=== PATIENT | male | born 1970 ===

== ENCOUNTER → 2020-07-06 09:43 | Outpatient (BNVA) | payer MEDICARE, OTHER, SELFPAY | PROVIDERS: PCP Family Medicine; Referring Provider Family Medicine; Visit Provider Internal Medicine | DX: D35.2 Benign neoplasm of pituitary gland (principal); E03.9 Hypothyroidism, unspecified; E11.22 Type 2 diabetes mellitus with diabetic chronic kidney disease; N18.6 End stage renal disease; E11.59 Type 2 diabetes mellitus with other circulatory complications; I25.10 Atherosclerotic heart disease of native coronary artery without angina pectoris; Z79.4 Long term (current) use of insulin; E21.3 Hyperparathyroidism, unspecified | CPT/HCPCS: 99205 ==

== ENCOUNTER 2020-08-10 12:24 | Outpatient (CLI) | payer MEDICARE, OTHER, SELFPAY ==
--- NOTE | 2020-08-10 12:45 | USCV_ITS ---
Shanell Siva Age: 49 Gender: M : 1970 Exam Date: 08/10/2020 12:43 Ordering Phys: Isela Saldivar MD ([email or web address]) Technologist: Pinky Pena Exam Location: [facility] [place] Indication: chest pain BP: 109 / 54 HR: 63 Rhythm: Sinus Technical Quality: Adequate MEASUREMENTS (Male / Female) Normal Values 2D ECHO LV Diastolic Diameter PLAX 5.0 cm 4.2 - 5.9 / 3.9 - 5.3 cm LV Systolic Diameter PLAX 3.8 cm LV Chamber Size 3.9 cm IVS Diastolic Thickness 1.3 cm 0.6 - 1.0 / 0.6 - 0.9 cm IVS Systolic Thickness 1.7 cm LVPW Diastolic Thickness 2.0 cm 0.6 - 1.0 / 0.6 - 0.9 cm LVPW Systolic Thickness 2.2 cm RV Chamber Size 3.7 cm LVOT Diameter 2.0 cm LV Ejection Fraction 2D Teich 48.5 % LV Ejection Fraction MOD 2C 34.3 % LV Ejection Fraction 2C AL 34.1 % LA Diameter 3.3 cm LA Width 3.5 cm LA Height 5.2 cm RA Width 3.3 cm RA Height 4.8 cm Aorta at Sinotubular Diameter 3.2 cm M-MODE LV Diastolic Diameter MM 5.4 cm 4.2 - 5.9 / 3.9 - 5.3 cm LV Systolic Diameter MM 3.4 cm LV Ejection Fraction MM Teich 67.2 % IVS Diastolic Thickness MM 0.6 cm 0.6 - 1.0 / 0.6 - 0.9 cm IVS Systolic Thickness MM 1.5 cm LVPW Diastolic Thickness MM 0.8 cm 0.6 - 1.0 / 0.6 - 0.9 cm LVPW Systolic Thickness MM 1.5 cm Aortic Annulus Diameter 4.1 cm LA Ao Ratio MM 0.8 MV E Point Septal Separation 1.3 cm DOPPLER AV Peak Velocity 137.3 cm/s LVOT Peak Velocity 104.3 cm/s AV Area Cont Eq vti 3.0 cm squared AV Area Cont Eq pk 2.5 cm squared MV Area PHT 3.1 cm squared Mitral E to A Ratio 1.0 MV E' Velocity 51.5 cm/s Mitral E to MV E' Ratio 13.3 Mitral E to LV E' Lateral Ratio 13.9 Mitral E to LV E' Septal Ratio 12.9 TR Peak Velocity 180.3 cm/s TR Peak Gradient 13.0 mmHg TV Peak E Velocity 68.0 cm/s Right Atrial Pressure 3.0 mmHg Pulmonary Artery Systolic Pressu 16.0 mmHg PV Peak Velocity 71.0 cm/s RV Acceleration Time 0.2 s RV Ejection Time 0.4 s RV AcT/ET 0.5 FINDINGS Left Ventricle Normal LV size with a slightly diminished ejection fraction of 48%. Mild diffuse hypokinesia of the septum and inferolateral wall segments.mild left ventricular hypertrophy. Grade I/IV diastolic dysfunction (abnormal relaxation filling pattern), normal to mildly elevated filling pressures. Right Ventricle The right ventricle is normal in size and function. Right Atrium The right atrium is normal in size. Left Atrium The left atrium is normal in size. Mitral Valve Thickened mitral valve. Moderate mitral annular calcification. Trace mitral valve regurgitation. Aortic Valve Thickened aortic valve. Tricuspid Valve No gross abnormalities noted Pulmonic Valve No gross abnormalities noted Pericardium Normal pericardium without effusion. Aorta Normal ascending aorta dimension. CONCLUSIONS Normal LV size with a slightly diminished ejection fraction of 48%. Mild diffuse hypokinesia of the septum and inferolateral wall segments.mild left ventricular hypertrophy. Grade I/IV diastolic dysfunction (abnormal relaxation filling pattern), normal to mildly elevated filling pressures. Thickened mitral valve. Moderate mitral annular calcification. Trace mitral valve regurgitation. The left atrium is normal in size. Thickened aortic valve. There is no pericardial effusion. There are no intracardiac masses. No previous study is available for comparison. Dr Isela Saldivar MD [facility] (Electronically Signed) Final Date: 10 August 2020 20:17 S
== END 2020-08-10 12:25 | disposition home or self-care (01) ==
LOC: US 12:28
PROVIDERS: PCP Family Medicine; Visit Provider Internal Medicine Cardiovascular Disease
DX: R07.89 Other chest pain (principal); I08.0 Rheumatic disorders of both mitral and aortic valves
CPT/HCPCS: 93306

== ENCOUNTER 2020-09-05 08:23 | Outpatient (CLI) | payer MEDICARE, OTHER, SELFPAY ==
[2020-09-05 08:30] VITALS: BMI 44.1
--- NOTE | 2020-09-05 09:13 | ECG_ITS ---
[facility] Test Date: 2020-09-05 Pat Name: Siva Reece Department: Room: Gender: Male Size Cutter: : 1970 Requested By: Isela Saldivar Order Number: [id number] Ronen MD: Isela Saldivar M.D. Interpretive Statements NAME OF STUDY: LEXISCAN SESTAMIBI STRESS TEST INDICATION: Sob, PROCEDURE: At the baseline, the EKG revealed normal sinus rhythm with a some nonspecific T wave changes in the high lateral leads. Possible old inferior wall OR. The baseline blood pressure was 136/88 mm Hg with a heart rate of 74 beats/min. Lexiscan was infused over a period of 20 seconds. A total of 0.4 milligrams of Lexiscan was infused. The stress phase was continued for a total of 5 minutes. Heart rate at the end of the stress phase was 91 with a blood pressure 116/89. The EKG at the peak infusion revealed no significant changes. Sestamibi was injected 20 seconds after the Lexiscan infusion. Blood pressure at the end of the recovery phase was 121/79 with a heart rate of 99 per minute. CONCLUSION: 1. No significant EKG changes with the LexiScan infusion 2. No LexiScan induced chest pain or cardiac arrhythmia 3. Normal blood pressure and heart rate response to Lexiscan infusion 4. Sestamibi/sestamibi perfusion scan pending; see separate report. Electronically Signed On 09-07-2020 12:58:09 CDT by Isela Saldivar M.D. [id number]
--- NOTE | 2020-09-05 09:14 | NMCV_ITS ---
NM josh perf SPECT r/s* [id number] Siva Reece Age: 49 Gender: M : 1970 Exam Date: 09/05/2020 09:14 Ordering Phys: Isela Saldivar MD ([email or web address]) Technologist: TYRESE Beckford Exam Location: [facility] Indications: SOB STRESS TEST [facility] IMAGE PROTOCOL Rest/Stress 1 Lexiscan Day Radiopharmaceutical Dose (mCi) Administration Site Administered by Rest: Tc-99m 11.0 IV TYRESE Lyle Sestamibi Stress:Tc-99m 32.5 IV TYRESE Lyle Sestamibi Rest: 05-Sep-2020 60 Discovery 630 Stress: 05-Sep-2020 30 Discovery 630 0.4mg Lexiscan. Images obtained in supine and prone position. SPECT RESULTS Technical Quality: Excellent Raw Data Analysis: Normal Image Corrections: No attenuation or motion correction applied Summed Stress Score: 18 Summed Rest Score: 13 Summed Difference Score: 7 PERFUSION FINDINGS Moderate area of decreased aseptic in the basal mid and apical anterior, inferior, mid anterolateral, apical lateral and LV apex. Some reversibility was noted in the anterior wall, anterolateral and apical lateral regions. FUNCTIONAL RESULTS (calculated via Gated SPECT) Stress Image LV EF (%): 45 Stress EDV (mL):175 TID: 0.98 Stress ESV (mL):96 FUNCTIONAL FINDINGS: Segmental wall motion analysis revealed diffuse hypokinesia of left ventricle, more so of the inferior wall, apex and the lateral wall segments. IMPRESSIONS 1. Myocardial perfusion imaging y revealing a moderate area of moderately decreased uptake in the anterior wall, inferior wall, anterolateral, apical lateral and LV apex with some reversibility in the anterior wall, anterolateral, and apical lateral segments, suggestive of myocardial scarring with ischemia in the distribution of the left circumflex artery/anterior descending artery. 2. Diminished LV ejection fraction of 45%. 3. Multiple wall motion normalities as mentioned above. 4. Moderately increased LV cavity with an end diastolic volume of 96 mL No similar previous studies are available for comparison Dr Isela Saldivar MD [facility] (Electronically Signed) Final Date: 05 Sep 2020 15:00 S
[2020-09-05 10:16] VITALS: BP 121/79; PULSE 99
[2020-09-05] MEDS: regadenoson 0.4 Mg/5 ml Syringe IVP (10:19)
== END 2020-09-05 08:24 | disposition home or self-care (01) ==
LOC: RAD 08:28 → CDL 08:30
PROVIDERS: PCP Family Medicine; Visit Provider Internal Medicine Cardiovascular Disease
DX: R06.02 Shortness of breath (principal)
CPT/HCPCS: 78452; 93017; A9500; J2785

== ENCOUNTER 2020-12-02 07:00 | Outpatient (CLI) | payer MEDICARE, OTHER, SELFPAY ==
[2020-12-02 07:00] VITALS: BP 112/76; PULSE 71; RESP 18; TEMP 36.6; O2SAT 98; BMI 43.0
[2020-12-02 07:33] VITALS: BP 113/74; PULSE 70; RESP 18; TEMP 36.9; O2SAT 96
[2020-12-02 08:30] VITALS: BP 110/75; PULSE 69; RESP 18; TEMP 36.8; O2SAT 98
== END 2020-12-02 07:01 | disposition home or self-care (01) ==
PROVIDERS: PCP Family Medicine; Visit Provider Family Medicine
DX: U07.1 COVID-19 (principal)
CPT/HCPCS: 96365

== ENCOUNTER 2021-01-14 11:26 | Outpatient (CLI) | payer MEDICARE, OTHER, SELFPAY ==
--- NOTE | 2021-01-14 11:45 | MR_ITS ---
WS: [id number] MRI HEAD WITH CONTRAST WITH ATTENTION TO THE PITUITARY. TECHNIQUE: Sagittal T1, T2 axial, T2 axial FLAIR, axial susceptibility weighted imaging, axial diffus ion weighted images, and coronal T2 images were obtained. Pre and post-T1 axial and post T1 coronal i mages. ADC and FSPGR images. CLINICAL INFORMATION: pituitary adenoma COMPARISON: None. FINDINGS: No evidence of restricted diffusion to suggest acute ischemia. Ventricular system and basal cisterns are patent. Mild small vessel changes. Mild parenchymal volume loss. No extra-axial fluid collections . Normal posterior fossa. Normal vascular flow voids at the skull base. Mild mucosal thickening in th e paranasal sinuses. Mastoid air cells are well aerated. No hemosiderin on susceptibly weighted images. Bony expansion of the sella with heterogeneous enhanci ng soft tissue compatible with history of pituitary adenoma. No significant suprasellar extension. No rmal optic chiasm and pituitary infundibulum. Enhancing heterogeneous tissue within the sella measuri ng approximately 1.8 x 1.6 x 1.6 cm AP by transverse by craniocaudal. This extends about the right ca vernous carotid artery involving the right cavernous sinus. Normal left cavernous sinus. 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 Recommend correlation with treatment history. No abnormal intracranial intraparenchymal enhancement. Normal dural venous sinuses. Incidental slight ly low-lying cerebellar tonsils. MR/MR pituitary wo/w con* [id number] IMPRESSION: Some images degraded by patient motion. 1. T2 hyperintense heterogeneously enhancing tissue within the expanded sella likely due to residual macroadenoma measuring approximately 1.8 x 1.6 x 1.6 cm with involvement of the right cavernous sinus. 2. No evidence of suprasellar extension. Minimal right to left deviation of th e infundibulum. Normal optic chiasm. 3. No restricted diffusion to suggest acute ischemia. 4. Mild small vessel changes with mild parenchymal volume loss. 5. No other significant findings.
--- NOTE | 2021-01-14 12:32 | XR_ITS ---
WS: [id number] FOREARM LEFT TECHNIQUE: 2 views of the left forearm CLINICAL INFORMATION: PRE MRI, FISCULR IMPANT COMPARISON: None. FINDINGS: Vascular calcification. Postoperative changes arteriovenous fistula graft in the volar distal forearm soft tissues. Postoperative changes with juan and embolization coils XR/XR forearm LT 2V [id number] IMPRESSION: Postoperative changes arteriovenous fistula graft in the volar distal forearm
== END 2021-01-14 11:27 | disposition home or self-care (01) ==
PROVIDERS: PCP Family Medicine; Visit Provider Internal Medicine
DX: Z01.818 Encounter for other preprocedural examination (principal); D35.2 Benign neoplasm of pituitary gland; Z96.89 Presence of other specified functional implants
CPT/HCPCS: 70553; 73090; A9577

== ENCOUNTER → 2021-06-13 10:34 | Outpatient (BNVA) | payer MEDICARE, OTHER, SELFPAY | PROVIDERS: PCP Family Medicine; Visit Provider Internal Medicine | DX: E11.22 Type 2 diabetes mellitus with diabetic chronic kidney disease (principal); E11.59 Type 2 diabetes mellitus with other circulatory complications; N18.6 End stage renal disease; E78.5 Hyperlipidemia, unspecified; D35.2 Benign neoplasm of pituitary gland; E03.9 Hypothyroidism, unspecified; I25.10 Atherosclerotic heart disease of native coronary artery without angina pectoris; Z99.2 Dependence on renal dialysis; Z79.4 Long term (current) use of insulin; Z87.891 Personal history of nicotine dependence | CPT/HCPCS: 99214 ==

== ENCOUNTER → 2021-10-17 10:18 | Outpatient (BNVA) | payer MEDICARE, OTHER, SELFPAY | PROVIDERS: PCP Family Medicine; Visit Provider Internal Medicine | DX: E11.22 Type 2 diabetes mellitus with diabetic chronic kidney disease (principal); E11.59 Type 2 diabetes mellitus with other circulatory complications; N18.6 End stage renal disease; E78.5 Hyperlipidemia, unspecified; D35.2 Benign neoplasm of pituitary gland; E03.9 Hypothyroidism, unspecified; I25.10 Atherosclerotic heart disease of native coronary artery without angina pectoris; Z99.2 Dependence on renal dialysis; Z79.4 Long term (current) use of insulin; Z87.891 Personal history of nicotine dependence | CPT/HCPCS: 99214 ==

== ENCOUNTER → 2021-12-03 09:33 | Outpatient (BNVA) | payer MEDICARE, OTHER, SELFPAY | PROVIDERS: PCP Family Medicine; Visit Provider Nurse Practitioner Family | DX: I12.0 Hypertensive chronic kidney disease with stage 5 chronic kidney disease or end stage renal disease (principal); E11.22 Type 2 diabetes mellitus with diabetic chronic kidney disease; N18.5 Chronic kidney disease, stage 5; Z99.2 Dependence on renal dialysis; Z87.891 Personal history of nicotine dependence; Z79.4 Long term (current) use of insulin; Z79.84 Long term (current) use of oral hypoglycemic drugs; E11.59 Type 2 diabetes mellitus with other circulatory complications; I25.10 Atherosclerotic heart disease of native coronary artery without angina pectoris | CPT/HCPCS: 93005; 99214 ==

== ENCOUNTER → 2022-04-01 16:00 | Outpatient (BNVA) | payer MEDICARE, OTHER, SELFPAY | PROVIDERS: PCP Family Medicine; Visit Provider Internal Medicine | DX: D35.2 Benign neoplasm of pituitary gland (principal); E78.5 Hyperlipidemia, unspecified; E03.9 Hypothyroidism, unspecified; E11.22 Type 2 diabetes mellitus with diabetic chronic kidney disease; N18.6 End stage renal disease; E11.59 Type 2 diabetes mellitus with other circulatory complications; I25.10 Atherosclerotic heart disease of native coronary artery without angina pectoris; Z79.4 Long term (current) use of insulin; Z87.891 Personal history of nicotine dependence; Z79.85 Long-term (current) use of injectable non-insulin antidiabetic drugs; Z79.890 Hormone replacement therapy | CPT/HCPCS: 36415; 80053; 80061; 83036; 84146; 84403; 84439; 84443; 85025; 99214 ==

== ENCOUNTER → 2022-06-03 11:31 | Outpatient (BNVA) | payer MEDICARE, OTHER, SELFPAY | PROVIDERS: PCP Family Medicine; Visit Provider Internal Medicine Cardiovascular Disease | DX: I25.10 Atherosclerotic heart disease of native coronary artery without angina pectoris (principal); E11.59 Type 2 diabetes mellitus with other circulatory complications; E78.5 Hyperlipidemia, unspecified; Z79.4 Long term (current) use of insulin; Z99.2 Dependence on renal dialysis; E03.9 Hypothyroidism, unspecified; D35.2 Benign neoplasm of pituitary gland; I12.0 Hypertensive chronic kidney disease with stage 5 chronic kidney disease or end stage renal disease; E11.22 Type 2 diabetes mellitus with diabetic chronic kidney disease; N18.6 End stage renal disease | CPT/HCPCS: 99214 ==

== ENCOUNTER → 2022-07-15 13:04 | Outpatient (BNVA) | payer MEDICARE, OTHER, SELFPAY | PROVIDERS: PCP Family Medicine; Visit Provider Internal Medicine | DX: E11.22 Type 2 diabetes mellitus with diabetic chronic kidney disease (principal); E11.59 Type 2 diabetes mellitus with other circulatory complications; N18.6 End stage renal disease; E78.5 Hyperlipidemia, unspecified; E03.9 Hypothyroidism, unspecified; D35.2 Benign neoplasm of pituitary gland; I25.10 Atherosclerotic heart disease of native coronary artery without angina pectoris; Z79.4 Long term (current) use of insulin; Z99.2 Dependence on renal dialysis; Z79.890 Hormone replacement therapy | CPT/HCPCS: 36415; 80053; 80061; 83036; 84146; 84403; 84439; 84443; 85025; 99214 ==

== ENCOUNTER → 2022-07-30 13:15 | Outpatient (BNVA) | payer MEDICARE, OTHER, SELFPAY | PROVIDERS: PCP Family Medicine; Visit Provider Surgery | DX: Z12.11 Encounter for screening for malignant neoplasm of colon (principal) | CPT/HCPCS: 99024; 99203 ==

== ENCOUNTER 2022-08-06 06:17 | Day surgery (SDC) | payer MEDICARE, OTHER, SELFPAY ==
[2022-08-04 12:15] VITALS: BMI 40.7
[2022-08-06 06:40] VITALS: BP 155/98; PULSE 93; RESP 17; TEMP 36.3; O2SAT 99
[2022-08-06] MEDS: sodium chloride 0.9% 1,000 ML 30 ML IV (06:54)
--- NOTE | 2022-08-06 07:46 | ANES.PREANE2 ---
Pre-Anesthetic Assessment Height/Weight: Height 1.78 m Weight 128.82 kg Temp Pulse Resp BP Pulse Ox O2 Del Method 97.3 F L 93 17 155/98 99 Room Air 08/06/22 06:40 08/06/22 06:40 08/06/22 06:40 08/06/22 06:40 08/06/22 06:40 08/06/22 06:40 Preop Diagnosis: Screening Operation Date: 08/06/22 08:00 Proposed Procedures p Colonoscopy 84315,Z12.11(Not Applicable) - Shalom Mitchell DO Familial anesthetic complications: None Was Beta Rox taken within 24 hours: Yes Was Clonidine taken within 24 hours: N/A Last intake: Intake Last Liquid Date 08/05/22 Last Liquid Time 22:00 Last Solid Date 08/04/22 Last Solid Time 20:00 Social No alcohol and No tobacco Exam alert, oriented x 3, clear to auscultation bilaterally and regular rate & rhythm Airway Submandibular: within normal limits Cervical ROM: within normal limits Mallampati: Class II Dentition: full History/ROS No significant history except as noted Pulmonary None reported CV/HEM Coronary Artery Disease and Hypertension 2018 triple bypass; pt sees cardiology group at [facility]- had angiogram last month and states everything was good , no chest pain or syncope with activity, good activity tolerance Chronic Renal Failure (CKD stage 5- getting established at [facility] for transplant; MWF dialysis- last dialysis on 08/04) Hepatic None reported GI None reported Metabolic Diabetes Mellitus (DM II), Hyperlipidemia, Morbid Obesity and Thyroid Disease pituitary adenoma; Hx hyperparathyroid Musc/skel None reported Neuropsych None reported Anesthetic Plan ASA status: 4 Anesthesia: Anesthesia Evaluation and MAC Risk of > 500 ml blood loss (7ml/kg in children): No Medications/Allergies Home Medications Medication Instructions Recorded Confirmed Last Taken Type cabergoline 0.5 mg tablet 0.5 mg PO DIRECTED 07/02/20 08/06/22 08/05/22 History furosemide 40 mg tablet 40 mg PO DAILY 07/02/20 08/06/22 08/05/22 History metoprolol tartrate 50 mg tablet 50 mg PO BID 07/02/20 08/06/22 08/05/22 History aspirin 325 mg tablet 325 mg PO DAILY 07/06/20 08/06/22 08/03/22 History insulin lispro 100 unit/mL 10 unit (0.1 mL) SUBCUT BID #33 mL 07/19/20 08/06/22 08/05/22 Rx subcutaneous pen atorvastatin 40 mg tablet 40 mg PO DAILY 09/05/20 08/06/22 08/05/22 History cinacalcet 60 mg tablet (Sensipar) 30 mg PO DAILY 09/05/20 08/06/22 08/05/22 History famotidine 40 mg tablet 20 mg PO BEDTIME 03/14/21 08/06/22 08/05/22 History sucroferric oxyhydroxide 500 mg 1,500 mg PO TID 03/14/21 08/06/22 08/04/22 History chewable tablet (Velphoro) vit B,C-folic ac 800 mcg-zinc 12.5 1 tab PO DAILY 03/14/21 08/06/22 08/05/22 History mg-selen-D3 2,000 unit-vit E tablet levothyroxine 137 mcg tablet 137 mcg PO DAILY #90 tabs 11/26/21 08/06/22 08/05/22 Rx testosterone 12.5 mg/1.25 gram per 2 pump transdermal QAM #150 grams 11/27/21 08/06/22 Unknown Rx actuation (1%) transdermal gel pump semaglutide 0.25 mg or 0.5 mg (2 2 mg SUBCUT .weekly 12/03/21 08/06/22 08/02/22 History mg/1.5 mL) subcutaneous pen injector (Ozempic) insulin syringe-needle U-100 1 mL #100 ea 07/15/22 07/30/22 Unknown Rx 32 gauge x 5/16 (Easy Comfort Insulin Syringe) testosterone cypionate 100 mg/mL 100 mg SUBCUT .q14day #10 mL 07/15/22 08/06/22 Unknown Rx intramuscular oil insulin detemir U-100 100 unit/mL 50 unit SUBCUT .bedtime 08/04/22 08/06/22 08/05/22 History (3 mL) subcutaneous pen (Levemir 25 units FlexTouch U-100 Insulin) isosorbide mononitrate 30 mg 30 mg PO DAILY #90 tabs 08/05/22 08/06/22 08/05/22 Rx tablet,extended release 24 hr Allergies Allergy/AdvReac Type Severity Reaction Status Date / Time No Known Allergies Allergy Verified 08/06/22 06:37 Current Medications Generic Name Dose Route Start Last Admin Trade Name Freq PRN Reason Stop Dose Admin Sodium Chloride 1,000 mls @ 30 mls/hr 08/06/22 06:45 08/06/22 06:54 Sodium Chloride 0.9% IV 08/07/22 06:44 30 mls/hr .Q24H NICK Administration PFSH Anesthesia Medical History CKD (chronic kidney disease), stage V Fistula H/O coronary angiogram History of hypertension Surgical History History of appendectomy History of esophagogastroduodenoscopy (EGD) History of pituitary surgery S/P triple vessel bypass Family History Mother CHF (congestive heart failure) Diabetes Chronic kidney disease (CKD) CAD (coronary artery disease) Family/Other Cancer Father Creutzfeldt-Justo's disease Denies family history of Clotting disorder Dementia Suicide Anesthesia complication Bleeding disorder Lung disease Stroke Social History Smoking and tobacco status: former smoker Second hand smoke exposure: Yes Alcohol intake: former Data Anesthesia Cardiac Studies: Echocardiogram Ultrasound 08/10/20 Sestamibi Stress Test (Cardiology) 09/05/20
--- NOTE | 2022-08-06 08:17 | W.PM.OPSUD ---
Surgery/Procedure H&P Update DATE OF PROCEDURE: August 06, 2022 DATE H&P PERFORMED: 07/30/22 H&P UPDATE INFORMATION: I have reviewed H&P completed within last 30 days, I have examined patient prior to procedure and No changes to prior documentation PREOP DIAGNOSIS: Screening PLANNED PROCEDURE: Operation Date: 08/06/22 08:00 Proposed Procedures p Colonoscopy 46926,Z12.11(Not Applicable) - Shalom Mitchell, DO
[2022-08-06 08:40] LABS: Alanine Aminotransferase 21 U/L (0-41); Albumin Level 3.4 g/dL (3.5-5.2); Alkaline Phosphatase 72 U/L (40-130); Blood Urea Nitrogen 50 mg/dL (6-20); Calcium 8.1 mg/dL (8.5-10.5); Carbon Dioxide 24 mmol/L (22-29); Chloride 100 mmol/L (98-107); Globulin 2.8 g/dL (1.3-4.6); Glomerular Filtration Rate 5.7 mL/min (90-130); Glucose 74 mg/dL (65-115); Osmolality Calculated 298 mOsm/kg (285-295); Sodium 138 mmol/L (136-145); Total Bilirubin 0.4 mg/dL (0.15-1.2); Total Protein 6.2 g/dL (6.6-8.7)
[2022-08-06 08:41] LABS: Anion Gap 18.5 (5-19); Aspartate Amino Transferase 19 U/L (0-40); Potassium 4.5 mmol/L (3.5-5.1)
[2022-08-06 09:46] VITALS: BP 122/58; PULSE 94; RESP 16; TEMP 36.1; O2SAT 95
[2022-08-06 10:01] VITALS: BP 131/63; PULSE 88; RESP 16; O2SAT 99
--- NOTE | 2022-08-06 15:19 | ANE.PACU2 ---
Inpatient post-anesthesia follow up: Airway intact: Yes Vital signs: Temperature 97.0 F Pulse Rate 88 Respiratory Rate 16 Blood Pressure 131/63 Pulse Oximetry 99 Oxygen Delivery Me thod Room Air Oxygen Flow Rate Fraction of Inspir ed Oxygen Hydration adequate: Yes Nausea and vomiting: No Pain level: 2 Mental status: Baseline
== END 2022-08-06 10:05 | disposition home or self-care (01) ==
PROVIDERS: Anesthesiology; PCP Family Medicine; Visit Provider Surgery
PROC: 0DJD8ZZ Inspection of Lower Intestinal Tract, Via Natural or Artificial Opening Endoscopic (ICD-10-PCS; CPT 45378; principal; 2022-08-06 08:00)
DX: Z12.11 Encounter for screening for malignant neoplasm of colon (principal); K57.30 Diverticulosis of large intestine without perforation or abscess without bleeding; K64.8 Other hemorrhoids; I25.10 Atherosclerotic heart disease of native coronary artery without angina pectoris; Z95.1 Presence of aortocoronary bypass graft; E11.22 Type 2 diabetes mellitus with diabetic chronic kidney disease; I12.0 Hypertensive chronic kidney disease with stage 5 chronic kidney disease or end stage renal disease; N18.5 Chronic kidney disease, stage 5; Z99.2 Dependence on renal dialysis; Z79.4 Long term (current) use of insulin; Z87.891 Personal history of nicotine dependence
CPT/HCPCS: 80053; G0121; J2704; J7030

== ENCOUNTER → 2022-12-09 11:42 | Outpatient (BNVA) | payer MEDICARE, OTHER, SELFPAY | PROVIDERS: PCP Family Medicine; Visit Provider Internal Medicine Cardiovascular Disease | DX: I25.10 Atherosclerotic heart disease of native coronary artery without angina pectoris (principal); E11.59 Type 2 diabetes mellitus with other circulatory complications; E03.9 Hypothyroidism, unspecified; E11.22 Type 2 diabetes mellitus with diabetic chronic kidney disease; N18.6 End stage renal disease; E78.5 Hyperlipidemia, unspecified; I12.0 Hypertensive chronic kidney disease with stage 5 chronic kidney disease or end stage renal disease; Z99.2 Dependence on renal dialysis; Z87.891 Personal history of nicotine dependence; Z79.4 Long term (current) use of insulin | CPT/HCPCS: 99214 ==

== ENCOUNTER → 2023-07-07 14:54 | Outpatient (BNVA) | payer MEDICARE, OTHER, SELFPAY | PROVIDERS: PCP Family Medicine; Visit Provider Internal Medicine Cardiovascular Disease | DX: I25.10 Atherosclerotic heart disease of native coronary artery without angina pectoris (principal); I12.0 Hypertensive chronic kidney disease with stage 5 chronic kidney disease or end stage renal disease; E11.22 Type 2 diabetes mellitus with diabetic chronic kidney disease; N18.5 Chronic kidney disease, stage 5; Z79.4 Long term (current) use of insulin; E78.5 Hyperlipidemia, unspecified; E21.3 Hyperparathyroidism, unspecified; Z87.891 Personal history of nicotine dependence | CPT/HCPCS: 99214 ==

== ENCOUNTER → 2023-07-28 10:33 | Outpatient (BNVA) | payer MEDICARE, OTHER, SELFPAY | PROVIDERS: PCP Family Medicine; Visit Provider Internal Medicine | DX: Z12.5 Encounter for screening for malignant neoplasm of prostate (principal); E11.22 Type 2 diabetes mellitus with diabetic chronic kidney disease; N18.6 End stage renal disease; Z79.4 Long term (current) use of insulin; Z99.2 Dependence on renal dialysis; E78.5 Hyperlipidemia, unspecified; E03.9 Hypothyroidism, unspecified; D35.2 Benign neoplasm of pituitary gland; E78.2 Mixed hyperlipidemia; E11.59 Type 2 diabetes mellitus with other circulatory complications; I25.10 Atherosclerotic heart disease of native coronary artery without angina pectoris; Z79.890 Hormone replacement therapy; Z79.85 Long-term (current) use of injectable non-insulin antidiabetic drugs | CPT/HCPCS: 36415; 80053; 80061; 82044; 82306; 82310; 83036; 83970; 84146; 84403; 84439; 84443; 85025; 99214; G0103 ==

== ENCOUNTER → 2023-09-29 09:43 | Outpatient (BNVA) | payer MEDICARE, OTHER, SELFPAY | PROVIDERS: PCP Family Medicine; Visit Provider Internal Medicine | DX: E11.22 Type 2 diabetes mellitus with diabetic chronic kidney disease (principal); E11.59 Type 2 diabetes mellitus with other circulatory complications; N18.6 End stage renal disease; Z99.2 Dependence on renal dialysis; E78.5 Hyperlipidemia, unspecified; E03.9 Hypothyroidism, unspecified; D35.2 Benign neoplasm of pituitary gland; I25.10 Atherosclerotic heart disease of native coronary artery without angina pectoris; Z79.890 Hormone replacement therapy; Z79.4 Long term (current) use of insulin | CPT/HCPCS: 36415; 80053; 80061; 82044; 83036; 84146; 84439; 84443; 99214 ==

== ENCOUNTER 2023-12-10 12:00 | Outpatient (CLI) | payer MEDICARE, OTHER, SELFPAY ==
[2023-12-10 12:54] LABS: Creatinine Urine, Random 88 mg/dL (39-259)
[2023-12-10 12:57] LABS: Estmated Average Glucose 100; Hemoglobin A1C 5.1 % (4.0-6.0)
[2023-12-10 12:59] LABS: Alanine Aminotransferase 30 U/L (0-41); Albumin Level 4.2 g/dL (3.5-5.2); Alkaline Phosphatase 92 U/L (40-130); Anion Gap 19.8 (5-19); Aspartate Amino Transferase 22 U/L (0-40); Blood Urea Nitrogen 42 mg/dL (6-20); Calcium 9.2 mg/dL (8.5-10.5); Carbon Dioxide 29 mmol/L (22-29); Chloride 95 mmol/L (98-107); Chol HDL Ratio 2.97 mg/dL (1.0-5.00); Cholesterol 101 mg/dL (0-200); Free T4 Free Thyroxine 1.28 ng/dL (0.82-1.77); Globulin 2.8 g/dL (1.3-4.6); Glomerular Filtration Rate 7.2 mL/min (90-130); Glucose 113 mg/dL (65-115); HDL Cholesterol 34 mg/dL (60-100); LDL Cholesterol Calculated 39 mg/dL (50-129); LDL HDL Ratio 1.15 RATIO (0.00-3.22); Osmolality Calculated 299 mOsm/kg (285-295); Potassium 4.8 mmol/L (3.5-5.1); Sodium 139 mmol/L (136-145); Thyroid Stimulating Hormone 5.79 uIU/mL (0.27-4.20); Total Bilirubin 0.4 mg/dL (0.15-1.2); Triglycerides 138 mg/dL (0-150)
[2023-12-10 14:09] LABS: Microalbum Creatinine Ratio Ur 455 mg/dL (0-20); Microalbumin Random Urine > 40 ug/dL (0-20)
== END 2023-12-10 12:01 | disposition home or self-care (01) ==
LOC: LAB 12:01
PROVIDERS: PCP Family Medicine; Visit Provider Internal Medicine
DX: N18.6 End stage renal disease (principal); Z79.4 Long term (current) use of insulin; Z99.2 Dependence on renal dialysis; E11.22 Type 2 diabetes mellitus with diabetic chronic kidney disease; E29.1 Testicular hypofunction; E78.5 Hyperlipidemia, unspecified; E03.9 Hypothyroidism, unspecified
CPT/HCPCS: 36415; 80053; 80061; 82044; 83036; 84146; 84439; 84443

== ENCOUNTER → 2023-12-31 11:09 | Outpatient (BNVA) | payer MEDICARE, OTHER, SELFPAY | PROVIDERS: PCP Family Medicine; Visit Provider Internal Medicine | DX: N18.6 End stage renal disease (principal); E11.22 Type 2 diabetes mellitus with diabetic chronic kidney disease; E78.5 Hyperlipidemia, unspecified; Z79.4 Long term (current) use of insulin; Z99.2 Dependence on renal dialysis | CPT/HCPCS: 36415; 80053; 80061; 82044; 83036; 84146; 84439; 84443 ==

== ENCOUNTER → 2024-01-07 10:15 | Outpatient (BNVA) | payer MEDICARE, OTHER, SELFPAY | PROVIDERS: PCP Family Medicine; Visit Provider Nurse Practitioner Family | DX: E11.59 Type 2 diabetes mellitus with other circulatory complications (principal); I25.10 Atherosclerotic heart disease of native coronary artery without angina pectoris; I12.0 Hypertensive chronic kidney disease with stage 5 chronic kidney disease or end stage renal disease; E11.22 Type 2 diabetes mellitus with diabetic chronic kidney disease; N18.5 Chronic kidney disease, stage 5; Z79.4 Long term (current) use of insulin | CPT/HCPCS: 99214 ==

== ENCOUNTER 2024-02-02 11:00 | Outpatient (CLI) | payer MEDICARE, OTHER, SELFPAY ==
--- NOTE | 2024-02-02 11:00 | MR_ITS ---
WS: [id number] MRI BRAIN WITHOUT AND WITH CONTRAST, ATTENTION DIRECTED TO THE PITUITARY GLAND HISTORY: pituitary adenoma COMPARISON: 01/14/2021 TECHNIQUE: Diffusion-weighted imaging, axial T2 sequence, and postcontrast images in 3 planes are per formed. High-resolution coronal and sagittal imaging performed through the pituitary region with and without intravenous gadolinium. Normal diffusion imaging. No acute ischemia. Normal ventricle system. No hydrocephalus. Mild small ve ssel disease and mild volume loss is stable. Reidentified is a heterogeneous enhancing soft tissue mass centered in the region of the sella turcic a and the pituitary gland. Pituitary infundibulum remains midline. No deviation of the optic chiasm. Mass measures 1.8 x 1.5 x 1.6 cm, AP by transverse by craniocaudad. Similar measurements as on the p rior study. There is extension to about the RIGHT carotid artery in the cavernous sinus. Similar to t he prior study. No progression. No extension into the LEFT cavernous carotid artery. There is slight extension towards the posterior RIGHT sphenoid sinus. No acute hemorrhage. Mild enhancement and heterogeneous thickening of the paranasal sinuses. No air-fluid levels. Mastoid air cells are clear. MR/MR pituitary wo/w con* [id number] IMPRESSION: 1. No interval change in the heterogeneous enhancing mass within the expanded sella turcica. This is most likely a microadenoma which is stable. Mass measure s 1.8 x 1.5 x 1.6 cm. Mild involvement of the RIGHT cavernous sinus but no prog ression. 2. No elevation of the optic chiasm. 3. Mild small vessel disease.
[2024-02-02] MEDS: gadobenate dimeglumine 20 mL vial IV (12:02)
== END 2024-02-02 11:01 | disposition home or self-care (01) ==
PROVIDERS: PCP Family Medicine; Visit Provider Internal Medicine
DX: D35.2 Benign neoplasm of pituitary gland (principal)
CPT/HCPCS: 70553; A9577

== ENCOUNTER 2024-04-02 12:32 | Outpatient (CLI) | payer MEDICARE, OTHER, SELFPAY ==
[2024-04-02 13:04] LABS: Estmated Average Glucose 105; Hemoglobin A1C 5.3 % (4.0-6.0)
[2024-04-02 13:18] LABS: Alanine Aminotransferase 43 U/L (0-41); Albumin Level 4.2 g/dL (3.5-5.2); Alkaline Phosphatase 87 U/L (40-130); Anion Gap 16.4 (5-19); Aspartate Amino Transferase 21 U/L (0-40); Blood Urea Nitrogen 45 mg/dL (6-20); Calcium 10.5 mg/dL (8.5-10.5); Carbon Dioxide 30 mmol/L (22-29); Chloride 94 mmol/L (98-107); Chol HDL Ratio 3.47 mg/dL (1.0-5.00); Cholesterol 118 mg/dL (0-200); Free T4 Free Thyroxine 1.24 ng/dL (0.82-1.77); Globulin 3.1 g/dL (1.3-4.6); Glomerular Filtration Rate 6.2 mL/min (90-130); Glucose 122 mg/dL (65-115); HDL Cholesterol 34 mg/dL (60-100); LDL Cholesterol Calculated 49 mg/dL (50-129); LDL HDL Ratio 1.44 RATIO (0.00-3.22); Osmolality Calculated 295 mOsm/kg (285-295); Potassium 4.4 mmol/L (3.5-5.1); Sodium 136 mmol/L (136-145); Thyroid Stimulating Hormone 2.84 uIU/mL (0.27-4.20); Total Bilirubin 0.4 mg/dL (0.15-1.2); Total Protein 7.3 g/dL (6.6-8.7); Triglycerides 174 mg/dL (0-150)
[2024-04-02 14:12] LABS: Prolactin 17.56 ng/mL (4.0-15.2)
== END 2024-04-02 12:33 | disposition home or self-care (01) ==
PROVIDERS: PCP Family Medicine; Visit Provider Internal Medicine
DX: E11.22 Type 2 diabetes mellitus with diabetic chronic kidney disease (principal); N18.6 End stage renal disease; Z79.4 Long term (current) use of insulin; Z99.2 Dependence on renal dialysis; E78.5 Hyperlipidemia, unspecified
CPT/HCPCS: 80053; 80061; 83036; 84146; 84439; 84443

== ENCOUNTER 2024-04-05 09:51 | Outpatient (CLI) | payer MEDICARE, OTHER, SELFPAY ==
[2024-04-05 10:37] LABS: Creatinine Urine, Random 84 mg/dL (39-259)
[2024-04-05 10:49] LABS: Microalbumin Random Urine 214 ug/dL (0-20)
[2024-04-05 10:50] LABS: Microalbum Creatinine Ratio Ur 2548 mg/dL (0-20)
== END 2024-04-05 09:52 | disposition home or self-care (01) ==
LOC: LAB 09:53
PROVIDERS: PCP Family Medicine; Visit Provider Internal Medicine
DX: E11.22 Type 2 diabetes mellitus with diabetic chronic kidney disease (principal); N18.6 End stage renal disease; Z79.4 Long term (current) use of insulin; Z99.2 Dependence on renal dialysis; E78.5 Hyperlipidemia, unspecified
CPT/HCPCS: 82044

== ENCOUNTER 2024-07-05 11:15 | Outpatient (CLI) | payer MEDICARE, OTHER, SELFPAY ==
[2024-07-05 12:04] LABS: Basophils # 0.1 10^3/uL (0.0-0.1); Basophils % 0.7 %; Eosinophils # 0.2 10^3/uL (0.0-0.8); Eosinophils % 2.8 %; Hematocrit 32.3 % (37-53); Lymphocytes # 1.1 10^3/uL (0.8-4.8); Lymphocytes % 16.7 %; Mean Corpuscular HGB Conc 33.4 g/dL (30-55); Mean Corpuscular Hemoglobin 35.5 pg (27-33); Mean Corpuscular Volume 106.3 fl (82-101); Mean Platelet Volume 10.5 fL (7.4-10.4); Monocytes # 0.6 10^3/uL (0.2-0.9); Monocytes % 9.6 %; Neutrophils # 4.65 10^3/uL (1.8-7.7); Neutrophils % 69.5 %; Nucleated Red Blood Cells % 0 %; Platelet Count 145 10^3/cmm (157-399); Red Blood Count 3.04 10^6/uL (3.85-5.65); Red Cell Distribution Width 13.3 % (12.1-15.1)
[2024-07-05 12:16] LABS: Estmated Average Glucose 108; Hemoglobin A1C 5.4 % (4.0-6.0)
[2024-07-05 12:41] LABS: Alanine Aminotransferase 52 U/L (0-41); Albumin Level 4.3 g/dL (3.5-5.2); Alkaline Phosphatase 90 U/L (40-130); Aspartate Amino Transferase 24 U/L (0-40); Blood Urea Nitrogen 39 mg/dL (6-20); Calcium 10.3 mg/dL (8.5-10.5); Carbon Dioxide 29 mmol/L (22-29); Chloride 95 mmol/L (98-107); Chol HDL Ratio 3.24 mg/dL (1.0-5.00); Cholesterol 110 mg/dL (0-200); Free T4 Free Thyroxine 1.26 ng/dL (0.82-1.77); Globulin 3.4 g/dL (1.3-4.6); Glomerular Filtration Rate 7.4 mL/min (90-130); Glucose 115 mg/dL (65-115); HDL Cholesterol 34 mg/dL (60-100); LDL Cholesterol Calculated 49 mg/dL (50-129); LDL HDL Ratio 1.44 RATIO (0.00-3.22); Osmolality Calculated 294 mOsm/kg (285-295); Sodium 137 mmol/L (136-145); Thyroid Stimulating Hormone 7.38 uIU/mL (0.27-4.20); Total Bilirubin 0.4 mg/dL (0.15-1.2); Total Protein 7.7 g/dL (6.6-8.7); Triglycerides 136 mg/dL (0-150)
[2024-07-05 12:43] LABS: Prostate Specific Antigen Scr 4.67 ng/mL (0-4)
[2024-07-05 13:22] LABS: Prolactin 14.43 ng/mL (4.0-15.2)
== END 2024-07-05 11:16 | disposition home or self-care (01) ==
LOC: LAB 11:20
PROVIDERS: PCP Family Medicine; Referring Provider Internal Medicine; Visit Provider Family Medicine
DX: E11.22 Type 2 diabetes mellitus with diabetic chronic kidney disease (principal); N18.6 End stage renal disease; Z79.4 Long term (current) use of insulin; Z99.2 Dependence on renal dialysis; E78.5 Hyperlipidemia, unspecified; E03.9 Hypothyroidism, unspecified; Z12.5 Encounter for screening for malignant neoplasm of prostate
CPT/HCPCS: 36415; 80053; 80061; 83036; 84146; 84439; 84443; 85025; G0103

== ENCOUNTER → 2024-07-07 10:33 | Outpatient (BNVA) | payer MEDICARE, OTHER, SELFPAY | PROVIDERS: PCP Family Medicine; Visit Provider Internal Medicine | DX: Z79.4 Long term (current) use of insulin (principal); N18.6 End stage renal disease; Z99.2 Dependence on renal dialysis; E11.22 Type 2 diabetes mellitus with diabetic chronic kidney disease; E03.9 Hypothyroidism, unspecified; E11.59 Type 2 diabetes mellitus with other circulatory complications; I25.10 Atherosclerotic heart disease of native coronary artery without angina pectoris; E78.5 Hyperlipidemia, unspecified; D35.2 Benign neoplasm of pituitary gland | CPT/HCPCS: 99214 ==

== ENCOUNTER 2024-10-06 09:58 | Outpatient (CLI) | payer MEDICARE, SELFPAY ==
[2024-10-06 10:48] LABS: Alanine Aminotransferase 21 U/L (0-41); Albumin Level 4.2 g/dL (3.5-5.2); Alkaline Phosphatase 86 U/L (40-130); Anion Gap 19.8 (5-19); Aspartate Amino Transferase 17 U/L (0-40); Blood Urea Nitrogen 43 mg/dL (6-20); Calcium 10.3 mg/dL (8.5-10.5); Carbon Dioxide 28 mmol/L (22-29); Chloride 97 mmol/L (98-107); Cholesterol 102 mg/dL (0-200); Globulin 3.2 g/dL (1.3-4.6); Glucose 132 mg/dL (65-115); HDL Cholesterol 34 mg/dL (60-100); LDL Cholesterol Calculated 47 mg/dL (50-129); LDL HDL Ratio 1.38 RATIO (0.00-3.22); Osmolality Calculated 303 mOsm/kg (285-295); Potassium 4.8 mmol/L (3.5-5.1); Prolactin 13.17 ng/mL (4.0-15.2); Sodium 140 mmol/L (136-145); Thyroid Stimulating Hormone 2.73 uIU/mL (0.27-4.20); Total Bilirubin 0.4 mg/dL (0.15-1.2); Total Protein 7.4 g/dL (6.6-8.7); Triglycerides 105 mg/dL (0-150)
[2024-10-06 10:56] LABS: Creatinine Urine, Random 65 mg/dL (39-259)
[2024-10-06 11:11] LABS: Microalbum Creatinine Ratio Ur 1954 mg/dL (0-20); Microalbumin Random Urine 127 ug/dL (0-20)
[2024-10-06 11:24] LABS: Estmated Average Glucose 108; Hemoglobin A1C 5.4 % (4.0-6.0)
[2024-10-06 11:55] LABS: Free T4 Free Thyroxine 1.28 ng/dL (0.82-1.77)
== END 2024-10-06 09:59 | disposition home or self-care (01) ==
PROVIDERS: PCP Nurse Practitioner Family; Visit Provider Internal Medicine
DX: E03.9 Hypothyroidism, unspecified (principal); N18.6 End stage renal disease; Z79.4 Long term (current) use of insulin; Z99.2 Dependence on renal dialysis; E11.22 Type 2 diabetes mellitus with diabetic chronic kidney disease; E11.59 Type 2 diabetes mellitus with other circulatory complications; I25.10 Atherosclerotic heart disease of native coronary artery without angina pectoris; E29.1 Testicular hypofunction
CPT/HCPCS: 36415; 80053; 80061; 82044; 83036; 84146; 84439; 84443

== ENCOUNTER → 2025-01-05 11:42 | Outpatient (BNVA) | payer OTHER, MEDICARE, SELFPAY | PROVIDERS: PCP Nurse Practitioner Family; Visit Provider Internal Medicine | DX: E29.1 Testicular hypofunction (principal); Z79.4 Long term (current) use of insulin; E11.22 Type 2 diabetes mellitus with diabetic chronic kidney disease; N18.6 End stage renal disease; Z99.2 Dependence on renal dialysis; E11.59 Type 2 diabetes mellitus with other circulatory complications; I25.10 Atherosclerotic heart disease of native coronary artery without angina pectoris; E03.9 Hypothyroidism, unspecified; D35.2 Benign neoplasm of pituitary gland | CPT/HCPCS: 36415; 80053; 80061; 83036; 84146; 84439; 84443 ==

== ENCOUNTER 2025-01-24 09:23 | Outpatient (CLI) | payer MEDICARE, OTHER, SELFPAY ==
--- NOTE | 2025-01-24 09:30 | MR_ITS ---
WS: [id number] MRI HEAD without and with gadolinium with pituitary protocol TECHNIQUE: Sagittal T1, T2 axial, T2 axial FLAIR, axial susceptibility weighted imaging, axial diffusion weighted images, and coronal T2 images were obtained. Pre and post-T1 axial and post T1 coronal images. ADC and FSPGR images. Pituitary protocol obtained. CLINICAL INFORMATION: see below COMPARISON: 2020 2023 FINDINGS: Again seen is bony expansion of the sella with heterogeneous enhancing soft tissue compatible with history of pituitary adenoma. No significant suprasellar extension. Normal optic chiasm and pituitary infundibulum. Enhancing heterogeneous tissue within the sella measuring approximately 1.8 x 1.6 x 1.6 cm AP by transverse by craniocaudal similar to previous. No interval progression. This extends about the right cavernous carotid artery involving the right cavernous sinus. Normal left cavernous sinus. Findings compatible with residual pituitary macroadenoma and appears unchanged. Mild small vessel changes. Mild parenchymal volume loss. Mild mucosal thickening in the paranasal sinuses. Mastoid air cells are well aerated. No hemosiderin on susceptibly weighted images. 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 Normal fourth ventricle. This is unchanged. MR/MR pituitary wo/w con* [id number] IMPRESSION: Overall no significant interval changes since 2023. 1. T2 hyperintense heterogeneously enhancing tissue within the expanded sella likely due to residual macroadenoma eccentric to the RIGHT measuring approximat charly 1.8 x 1.6 x 1.6 cm with involvement of the right cavernous sinus. 2. No evidence of suprasellar extension. 3. Minimal right to left deviation of the infundibulum. Normal optic chiasm. 4. Mild small vessel changes with mild parenchymal volume loss. 5. No other acute findings.
[2025-01-24] MEDS: gadobenate dimeglumine 20 mL vial IV (10:15)
== END 2025-01-24 09:24 | disposition home or self-care (01) ==
LOC: RAD 09:24
PROVIDERS: PCP Nurse Practitioner Family; Visit Provider Internal Medicine
DX: E29.1 Testicular hypofunction (principal); Z79.4 Long term (current) use of insulin; E11.22 Type 2 diabetes mellitus with diabetic chronic kidney disease; N18.6 End stage renal disease; Z99.2 Dependence on renal dialysis; E11.59 Type 2 diabetes mellitus with other circulatory complications; I25.10 Atherosclerotic heart disease of native coronary artery without angina pectoris; E03.9 Hypothyroidism, unspecified; D35.2 Benign neoplasm of pituitary gland; E23.6 Other disorders of pituitary gland; H47.49 Disorders of optic chiasm in (due to) other disorders; I67.89 Other cerebrovascular disease
CPT/HCPCS: 70553